=== PATIENT | male | born 1980 | race Caucasian/White ===

== ENCOUNTER → 2017-08-31 | Outpatient (CLI) | payer SELFPAY ==
[~2017-08-31] MED LIST: CEPHALEXIN500 M1 PO; NORCO 325 MG-7.1 TAB PO
== END ==
LOC: ZCOL.LAB 16:28
DX: M25.422 Effusion, left elbow (principal)

== ENCOUNTER 2019-10-30 08:12 | Outpatient (RCR) | payer OTHER | END 2020-01-28 | disposition home or self-care (01) | LOC: WSOH | DX: M25.512 Pain in left shoulder (principal); F17.210 Nicotine dependence, cigarettes, uncomplicated; Y99.0 Civilian activity done for income or pay ==

== ENCOUNTER 2021-03-31 07:56 | Outpatient (RCR) | payer OTHER | END 2021-06-29 | disposition home or self-care (01) | LOC: WSOH | DX: S46.811A Strain of other muscles, fascia and tendons at shoulder and upper arm level, right arm, initial encounter (principal); Y99.0 Civilian activity done for income or pay ==